=== PATIENT | female | born 1970 | race African-American/Black ===

== ENCOUNTER 2017-11-16 13:52 | Emergency (ER) | payer MEDICARE, MEDICAID ==
[~2017-11-16 13:52] MED LIST: Dextrose 50% Abboject 50 ML SYRINGE ONE; Sodium Chloride 0.9% 1,000 ML BAG ONE
[2017-11-16] MEDS ORDERED: Ondansetron ODT 4 MG TAB ONE (15:42)
[2017-11-16] MEDS ORDERED: Ketorolac Tromethamine 30 MG/ML VIAL ONE (15:42)
[2017-11-16 16:05] LABS: #Lymphocytes 0.6 thou/uL (1.20-3.40); #Monocytes 0.6 thou/uL (0.11-0.59); #Neutrophils 5.6 thou/uL (1.40-6.50); %Basophils 0.5 % (0.0-1.0); %Eosinophils 0.2 % (0.0-10.0); %Lymphocytes 9.1 % (21.0-51.0); %Monocytes 8.5 % (0.0-10.0); %Neutrophils 81.7 % (42.0-75.0); Hemoglobin 11.7 g/dL (12.0-16.0); Mean Corpuscular HGB CONC 31.9 g/dL (32.0-36.0); Mean Corpuscular Hemoglobin 32.3 pg (27.0-31.0); Mean Corpuscular Volume 101.1 fL (78.0-98.0); Mean Platelet Volume 7.6 fL (7.4-10.4); Platelet Count 190 thou/uL (130-400); RBC Distribution Width 12.3 % (11.5-14.5); Red Blood Cell (RBC) Count 3.64 mill/uL (4.20-5.40); White Blood Cell (WBC) Count 6.9 thou/uL (4.8-10.8)
[2017-11-16 16:09] LABS: Bilirubin Negative (Negative); Blood, Urine Trace (Negative); Clarity Clear (Clear); Glucose, Urine (Dipstick) 250 mg/dL (Negative); Leukocyte Negative (Negative); Nitrite Negative (Negative); Protein, Urine (Dipstick) 30 mg/dL (Neg-Trace); Urobilinogen 0.2 mg/dL (0.2-1.0); pH, Urine 5.5 (5.0-9.0)
[2017-11-16 16:11] LABS: Bacteria/HPF Rare-Few HPF (None Seen); RBC/HPF 0-3 HPF (0-3); WBC/HPF None Seen HPF (0-3)
[2017-11-16 16:24] LABS: ALT (SGPT) 69 U/L (8-55); AST (SGOT) 59 U/L (5-34); Albumin 3.8 g/dL (3.5-5.0); Alkaline Phosphatase 105 U/L (40-150); Anion Gap 17 mmol/L (10-20); BUN (Urea Nitrogen) 8 mg/dL (7.0-18.7); Bilirubin, Total 0.3 mg/dL (0.2-1.2); Calc. Creatinine Clearance 0 mL/min (70-130); Calcium 8.8 mg/dL (7.8-10.44); Carbon Dioxide 23 mmol/L (22-29); Chloride 106 mmol/L (98-107); Estimated GFR-MDRD 76; Globulin 2.9 g/dL (2.4-3.5); Glucose 218 mg/dL (70-105); Potassium 3.5 mmol/L (3.5-5.1); Protein, Total 6.7 g/dL (6.0-8.3); Sodium 142 mmol/L (136-145)
[2017-11-16 16:31] LABS: Lipase Less than 4 U/L (8-78)
[2017-11-16] MEDS ORDERED: Labetalol HCl 100 MG/20 ML VIAL ONE (17:25)
[2017-11-16 17:37] LABS: Pregnancy Test - Urine (BHCG) Negative (Negative); Pregu Control Background? CLEAR/WHITE (CLR/WHITE); Pregu Control Bar Appear? YES (CONTROL BAR); Specific Gravity 1.007 (1.002-1.036)
== END 2017-11-16 22:00 | disposition home or self-care (01) ==
LOC: MADERS 13:52
DX: E10.649 Type 1 diabetes mellitus with hypoglycemia without coma (principal); I10 Essential (primary) hypertension; Z79.82 Long term (current) use of aspirin; Z79.899 Other long term (current) drug therapy; Z79.4 Long term (current) use of insulin
CPT/HCPCS: 80053; 81001; 81025; 82150; 82962; 83690; 85025; 87086; 96374; 96375; 99284; J1610; 36415; 36416; J1885; J7050; Q0162

== ENCOUNTER 2018-05-24 17:19 | Emergency (ER) | payer MEDICARE, MEDICAID ==
[~2018-05-24 17:19] MED LIST changes: -Dextrose 50% Abboject 50 ML SYRINGE ONE; +Iopamidol 370 76% 100 ML VIAL ONE; -Sodium Chloride 0.9% 1,000 ML BAG ONE
[2018-05-24 18:02] LABS: #Lymphocytes 0.4 thou/uL (1.20-3.40); #Monocytes 0.3 thou/uL (0.11-0.59); #Neutrophils 11.2 thou/uL (1.40-6.50); %Basophils 0.3 % (0.0-1.0); %Lymphocytes 3.3 % (21.0-51.0); %Monocytes 2.1 % (0.0-10.0); %Neutrophils 94.2 % (42.0-75.0); Hemoglobin 12.1 g/dL (12.0-16.0); Mean Corpuscular Hemoglobin 32.5 pg (27.0-31.0); Mean Corpuscular Volume 101.5 fL (78.0-98.0); Mean Platelet Volume 9.6 fL (7.4-10.4); Platelet Count 200 thou/uL (130-400); RBC Distribution Width 13.3 % (11.5-14.5); Red Blood Cell (RBC) Count 3.73 mill/uL (4.20-5.40); White Blood Cell (WBC) Count 11.9 thou/uL (4.8-10.8)
[2018-05-24 18:03] LABS: ALT (SGPT) 24 U/L (8-55); AST (SGOT) 32 U/L (5-34); Albumin 4.3 g/dL (3.5-5.0); Alkaline Phosphatase 91 U/L (40-150); Anion Gap 22 mmol/L (10-20); BUN (Urea Nitrogen) 12 mg/dL (7.0-18.7); Calc. Creatinine Clearance 0 mL/min (70-130); Calcium 9.3 mg/dL (7.8-10.44); Carbon Dioxide 19 mmol/L (22-29); Chloride 102 mmol/L (98-107); Estimated GFR-MDRD 64; Globulin 3.3 g/dL (2.4-3.5); Glucose 313 mg/dL (70-105); Lipase 20 U/L (8-78); Protein, Total 7.6 g/dL (6.0-8.3); Sodium 139 mmol/L (136-145)
[2018-05-24 18:17] LABS: Bilirubin Negative (Negative); Blood, Urine Small (Negative); Glucose, Urine (Dipstick) >=1000 mg/dL (Negative); Leukocyte Negative (Negative); Nitrite Negative (Negative); Protein, Urine (Dipstick) > or equal to 300 mg/dL (Neg-Trace); Urobilinogen 0.2 mg/dL (0.2-1.0); pH, Urine 6.5 (5.0-9.0)
[2018-05-24 18:21] LABS: Bacteria/HPF Rare-Few HPF (None Seen); Clarity Hazy (Clear); Squamous Epithelial 0-3 HPF (0-3); WBC/HPF 0-3 HPF (0-3)
[2018-05-24] MEDS ORDERED: Insulin Regular 300 UNITS/3 ML VIAL ONE (18:50)
[2018-05-24] MEDS ORDERED: Sodium Chloride 0.9% 1,000 ML ONE ×2 (18:50→20:20)
[2018-05-24] MEDS ORDERED: diphenhydrAMINE 50 MG/ML VIAL ONE (19:05)
[2018-05-24] MEDS ORDERED: Fentanyl 100 MCG/2 ML VIAL ONE ×2 (19:05→20:48)
--- NOTE | 2018-05-24 20:15 | CT ---
ABDOMEN AND PELVIS CT SCAN WITH IV CONTRAST: HISTORY: A 47-year-old female with a history of hypertension, prior pancreatitis, and diabetes. Prior Whipple procedure, as well as numerous other procedures. FINDINGS: The lung bases are clear. The liver is unremarkable. No significant ductal dilatation. There is so me edematous changes around the tail of the pancreas, worrisome for acute pancreatitis. Correlate wi th pancreatic enzymes. The spleen and adrenal glands are unremarkable. Small, stable left renal hyp odensities, evidence for small cysts. Electrode device overlies the left anterolateral subcutaneous tissue. Normal appearing appendix. No renal calculi or acute obstruction. IMPRESSION: 1. Edematous changes around the tail of the pancreas, evidence for acute pancreatitis. 2. Postoperative changes in the upper abdomen. Status post cholecystectomy. 3. Renal hypodensities, stable. 4. No evidence for other significant acute process. POS: JASMEET
[2018-05-24] MEDS ORDERED: Sodium Chloride 0.9% 100 ML ONE (20:48)
== END 2018-05-24 22:42 | disposition short-term general hospital (02) ==
LOC: MADERS 17:19
DX: E10.10 Type 1 diabetes mellitus with ketoacidosis without coma (principal); I10 Essential (primary) hypertension; Z79.899 Other long term (current) drug therapy; Z79.82 Long term (current) use of aspirin
CPT/HCPCS: 36416; 74177; 80053; 81003; 81015; 83690; 84484; 85025; 93005; 94760; 96361; 96365; 96366; 96375; 96376; J1200; J1815; J3010; J7050

== ENCOUNTER 2018-08-18 22:35 | Emergency (ER) | payer MEDICARE, MEDICAID ==
[~2018-08-18 22:35] MED LIST changes: -Iopamidol 370 76% 100 ML VIAL ONE; +Sodium Chloride 0.9% 1,000 ML BAG ONE
[2018-08-19 00:09] LABS: #Basophils 0.1 thou/uL (0.0-0.2); #Eosinphils 0.1 thou/uL (0.0-0.7); #Lymphocytes 0.6 thou/uL (1.20-3.40); #Monocytes 0.7 thou/uL (0.11-0.59); #Neutrophils 4.7 thou/uL (1.40-6.50); %Basophils 1.1 % (0.0-1.0); %Eosinophils 0.8 % (0.0-10.0); %Lymphocytes 10.4 % (21.0-51.0); %Monocytes 10.9 % (0.0-10.0); %Neutrophils 76.7 % (42.0-75.0); Hemoglobin 10.5 g/dL (12.0-16.0); Mean Corpuscular HGB CONC 32.1 g/dL (32.0-36.0); Mean Corpuscular Hemoglobin 30.8 pg (27.0-31.0); Mean Corpuscular Volume 95.8 fL (78.0-98.0); Mean Platelet Volume 8.2 fL (7.4-10.4); Platelet Count 187 thou/uL (130-400); RBC Distribution Width 13.3 % (11.5-14.5); White Blood Cell (WBC) Count 6.1 thou/uL (4.8-10.8)
[2018-08-19 00:23] LABS: ALT (SGPT) 70 U/L (8-55); AST (SGOT) 72 U/L (5-34); Albumin 2.9 g/dL (3.5-5.0); Alkaline Phosphatase 100 U/L (40-150); Anion Gap 11 mmol/L (10-20); BUN (Urea Nitrogen) 11 mg/dL (7.0-18.7); Bilirubin, Total 0.3 mg/dL (0.2-1.2); CK (CPK) 44 U/L (29-168); Calc. Creatinine Clearance 0 mL/min (70-130); Carbon Dioxide 29 mmol/L (22-29); Chloride 106 mmol/L (98-107); Estimated GFR-MDRD 57; Globulin 2.3 g/dL (2.4-3.5); Glucose 152 mg/dL (70-105); Potassium 3.4 mmol/L (3.5-5.1); Protein, Total 5.2 g/dL (6.0-8.3); Sodium 143 mmol/L (136-145)
== END 2018-08-19 01:00 | disposition home or self-care (01) ==
LOC: MADERS 22:35
DX: I95.9 Hypotension, unspecified (principal); E86.0 Dehydration; R42 Dizziness and giddiness; T50.905A Adverse effect of unspecified drugs, medicaments and biological substances, initial encounter; E10.9 Type 1 diabetes mellitus without complications; I10 Essential (primary) hypertension; Z79.4 Long term (current) use of insulin; Z79.82 Long term (current) use of aspirin; Z79.899 Other long term (current) drug therapy
CPT/HCPCS: 36415; 80053; 82550; 85025; 96360; J7050

== ENCOUNTER 2018-11-06 22:42 | Emergency (ER) | payer MEDICARE, MEDICAID ==
[2018-11-06] MEDS ORDERED: Ondansetron PF 4 MG/2 ML Vial ONE (23:22)
[2018-11-07 00:40] LABS: #Lymphocytes 0.4 thou/uL (1.20-3.40); #Monocytes 0.3 thou/uL (0.11-0.59); #Neutrophils 10.5 thou/uL (1.40-6.50); %Basophils 0.3 % (0.0-1.0); %Eosinophils 0.1 % (0.0-10.0); %Lymphocytes 3.9 % (21.0-51.0); %Monocytes 2.8 % (0.0-10.0); %Neutrophils 92.9 % (42.0-75.0); Mean Corpuscular HGB CONC 31.4 g/dL (32.0-36.0); Mean Corpuscular Hemoglobin 31.6 pg (27.0-31.0); Mean Corpuscular Volume 100.7 fL (78.0-98.0); Mean Platelet Volume 6.9 fL (7.4-10.4); Platelet Count 257 thou/uL (130-400); RBC Distribution Width 14.7 % (11.5-14.5); Red Blood Cell (RBC) Count 3.47 mill/uL (4.20-5.40); White Blood Cell (WBC) Count 11.3 thou/uL (4.8-10.8)
[2018-11-07 00:55] LABS: BHCG - Serum Negative (NEGATIVE); Pregs Control Background? CLEAR/WHITE (CLR/WHITE); Pregs Control Bar Appear? YES (CONTROL BAR)
[2018-11-07 01:49] LABS: ALT (SGPT) 44 U/L (8-55); AST (SGOT) 43 U/L (5-34); Albumin 3.5 g/dL (3.5-5.0); Alkaline Phosphatase 103 U/L (40-150); Anion Gap 12 mmol/L (10-20); BUN (Urea Nitrogen) 12 mg/dL (7.0-18.7); Bilirubin, Total 0.6 mg/dL (0.2-1.2); Calc. Creatinine Clearance 0 mL/min (70-130); Calcium 8.4 mg/dL (7.8-10.44); Carbon Dioxide 27 mmol/L (22-29); Chloride 106 mmol/L (98-107); Estimated GFR-MDRD 50; Glucose 239 mg/dL (70-105); Magnesium 2.1 mg/dL (1.6-2.6); Potassium 3.9 mmol/L (3.5-5.1); Protein, Total 6.5 g/dL (6.0-8.3); Sodium 141 mmol/L (136-145)
== END 2018-11-07 02:55 | disposition home or self-care (01) ==
LOC: MADERS 22:42
DX: E10.649 Type 1 diabetes mellitus with hypoglycemia without coma (principal); D64.9 Anemia, unspecified; I10 Essential (primary) hypertension; Z79.82 Long term (current) use of aspirin; Z79.4 Long term (current) use of insulin; Z79.899 Other long term (current) drug therapy
CPT/HCPCS: 36416; 80053; 83735; 84703; 85025; 96374; J2405

== ENCOUNTER 2019-06-19 19:23 | Emergency (ER) | payer MEDICARE, MEDICAID ==
[~2019-06-19 19:23] MED LIST changes: +Aspirin Chewable 81 MG TAB ONE; +Iopamidol 370 76% 100 ML VIAL ONE; -Sodium Chloride 0.9% 1,000 ML BAG ONE
[2019-06-19] MEDS ORDERED: Sodium Chloride 0.9% 1,000 ML ONE ×2 (20:17→21:43)
[2019-06-19] MEDS ORDERED: Promethazine HCl 25 MG/ML VIAL ONE (20:50)
[2019-06-19 20:51] LABS: Bilirubin Negative (Negative); Blood, Urine Trace (Negative); Clarity Clear (Clear); Glucose, Urine (Dipstick) 500 mg/dL (Negative); Leukocyte Negative (Negative); Nitrite Negative (Negative); Protein, Urine (Dipstick) 30 mg/dL (Neg-Trace); Urobilinogen 0.2 mg/dL (Less than 2)
[2019-06-19 21:02] LABS: Bacteria/HPF Rare-Few HPF (None Seen); RBC/HPF 0-3 HPF (0-3); Squamous Epithelial 0-3 HPF (0-3); WBC/HPF 0-3 HPF (0-3)
[2019-06-19 21:33] LABS: ALT (SGPT) 20 U/L (8-55); AST (SGOT) 32 U/L (5-34); Alkaline Phosphatase 74 U/L (40-110); Anion Gap 20 mmol/L (10-20); BUN (Urea Nitrogen) 11 mg/dL (7.0-18.7); Bilirubin, Total 0.5 mg/dL (0.2-1.2); CRP (Inflammatory) Less than 0.50 mg/dL (= or < 0.5); Calc. Creatinine Clearance 0 mL/min (70-130); Calcium 8.6 mg/dL (7.8-10.44); Carbon Dioxide 16 mmol/L (22-29); Chloride 106 mmol/L (98-107); Estimated GFR-MDRD 58; Globulin 2.7 g/dL (2.4-3.5); Glucose 302 mg/dL (70-105); Potassium 3.4 mmol/L (3.5-5.1); Protein, Total 6.7 g/dL (6.0-8.3); Sodium 139 mmol/L (136-145)
[2019-06-19 21:36] LABS: #Basophils 0.1 thou/uL (0.0-0.2); #Lymphocytes 0.8 thou/uL (1.20-3.40); #Monocytes 0.3 thou/uL (0.11-0.59); #Neutrophils 6.1 thou/uL (1.40-6.50); %Basophils 1.1 % (0.0-1.0); %Eosinophils 0.2 % (0.0-10.0); %Lymphocytes 11.2 % (21.0-51.0); %Monocytes 4.4 % (0.0-10.0); Critical Call w/ Read Back NO; Hemoglobin 12.6 g/dL (12.0-16.0); Mean Corpuscular HGB CONC 29.9 g/dL (32.0-36.0); Mean Corpuscular Hemoglobin 30.5 pg (27.0-31.0); Mean Corpuscular Volume 102.1 fL (78.0-98.0); Mean Platelet Volume 11.3 fL (7.4-10.4); Platelet Count 157 thou/uL (130-400); RBC Distribution Width 14.7 % (11.5-14.5); Red Blood Cell (RBC) Count 4.14 mill/uL (4.20-5.40); White Blood Cell (WBC) Count 7.4 thou/uL (4.8-10.8)
[2019-06-19] MEDS ORDERED: Pantoprazole 40 MG VIAL ONE (22:39)
[2019-06-19] MEDS ORDERED: Fentanyl 100 MCG/2 ML VIAL ONE ×2 (22:39→23:39)
--- NOTE | 2019-06-19 23:05 | CT ---
CT ABDOMEN AND PELVIS WITH IV CONTRAST: History: Nausea, vomiting, abdominal pain. Comparison: 06-14-2019 FINDINGS: Lung bases are clear. Gallbladder is not visualized, presumably absent. There is minimal pneumobilia present. Liver has a n ormal Ct appearance. The pancreas is not well assessed due to adjacent loops of bowel. The spleen and bilateral adrenal gl ands have a normal CT appearance. Subcentimeter, too small to characterize, hypodense lesions are aga in seen in each kidney. Post-surgical changes, loops of bowel in the upper abdomen are noted which involve the stomach and lo ops of small bowel. Paez of the urinary bladder do appear mildly thickened, this is a stable finding compared to the radha or exam. Questionable minimal adjacent perivesical inflammatory changes. Cystitis in the correct clin ical scenario is a possibility. The enlarged portion of the colon is predominately fluid filled extending to the rectum. There is sug gestion of mucosal thickening involving the paez of the proximal rectum. This was not appreciated on the prior examination, but there was evidence of thickening involving the ascending colon near the l evel of the hepatic flexure which is not appreciated on the current study. Abdominal aorta is normal in caliber. Portal vein appear patent on this exam. No free fluid, fluid collection, or lymphadenopathy is seen in the abdomen or pelvis. Uterus is visualized and has a normal appearance. There is a catheter within the central canal of the spine which extends to the T9-10 level. This was also present on prior exam. Post-surgical changes related to scarring in the left lower quadrant of the abdomen are present. IMPRESSION: 1. Large portion of the colon is fluid filled but greater in the region of the descending colon exten ding to the rectum with suggestion of mucosal thickening involving a portion of the proximal rectum/d istal descending colon. Findings could be relate colitis in the correct clinical scenario. 2. Mild thickening involving the urinary bladder with minimal adjacent inflammatory changes, especial ly anterior. Cystitis in the correct clinical scenario is a possibility. 3. Additional findings as described above, overall unchanged from prior study. POS: JASMEET
[2019-06-19] MEDS ORDERED: Aspirin Chewable 81 MG TAB ONE (23:26)
[2019-06-19] MEDS ORDERED: Nitroglycerin 2% Ointment 1 INCH/1 GM Packet ONE (23:26)
[2019-06-19 23:35] LABS: CKMB 1.2 ng/mL (0-6.6)
[2019-06-19] MEDS ORDERED: Metoprolol Tartrate 50 MG TAB ONE (23:41)
== END 2019-06-19 23:55 | disposition short-term general hospital (02) ==
LOC: MADERS 19:23
DX: K85.90 Acute pancreatitis without necrosis or infection, unspecified (principal); K52.9 Noninfective gastroenteritis and colitis, unspecified; E10.65 Type 1 diabetes mellitus with hyperglycemia; R11.2 Nausea with vomiting, unspecified; I10 Essential (primary) hypertension; Z79.899 Other long term (current) drug therapy
CPT/HCPCS: 74177; 80053; 81003; 81015; 82150; 82553; 83605; 83690; 84484; 85025; 86140; 87086; 96361; 96365; 96375; 96376; C9113; J2550; J3010; J7050; Q9967

== ENCOUNTER 2019-11-20 23:56 | Emergency (ER) | payer MEDICARE, MEDICAID ==
[2019-11-21] MEDS ORDERED: Pantoprazole 40 MG VIAL ONE (00:23)
[2019-11-21] MEDS ORDERED: Promethazine HCl 25 MG/ML VIAL ONE ×2 (00:23→03:01)
[2019-11-21] MEDS ORDERED: Metoclopramide HCl 10 MG/2 ML VIAL ONE (00:23)
[2019-11-21] MEDS ORDERED: Metoprolol Tartrate 50 MG TAB ONE (00:48)
[2019-11-21] MEDS ORDERED: Amlodipine 5 MG TAB ONE ×2 (00:48→00:55)
[2019-11-21 01:11] LABS: Hemoglobin 12.6 g/dL (12.0-16.0); Mean Corpuscular HGB CONC 30.3 g/dL (32.0-36.0); Mean Corpuscular Hemoglobin 32.1 pg (27.0-31.0); Mean Platelet Volume 9.8 fL (7.4-10.4); Platelet Count 206 thou/uL (130-400); RBC Distribution Width 13.2 % (11.5-14.5); Red Blood Cell (RBC) Count 3.92 mill/uL (4.20-5.40); White Blood Cell (WBC) Count 9.5 thou/uL (4.8-10.8)
[2019-11-21 01:28] LABS: #Basophils 0.1 thou/uL (0.0-0.2); #Lymphocytes 0.7 thou/uL (1.20-3.40); #Monocytes 0.6 thou/uL (0.11-0.59); #Neutrophils 8.1 thou/uL (1.40-6.50); %Basophils 0.6 % (0.0-1.0); %Eosinophils 0.2 % (0.0-10.0); %Lymphocytes 7.5 % (21.0-51.0); %Monocytes 6.5 % (0.0-10.0); %Neutrophils 85.2 % (42.0-75.0); MDiff Complete? YES; Macrocytosis SLIGHT = 6-15 cells (100X) (0-5/hpf); Platelet Morphology Comment Appears Adequate; Stomatocytes SLIGHT = 2-5 cells (100X) (0-1/hpf)
[2019-11-21 01:41] LABS: Bilirubin Small (Negative); Blood, Urine Small (Negative); Clarity Clear (Clear); Glucose, Urine (Dipstick) Negative (Negative); Ketone, Urine 15 mg/dL (Negative); Leukocyte Negative (Negative); Nitrite Negative (Negative); Protein, Urine (Dipstick) > or equal to 300 mg/dL (Neg-Trace); Specific Gravity, Urine 1.028 (1.002-1.036); Urobilinogen 0.2 mg/dL (Less than 2); pH, Urine 5.5 (5.0-9.0)
[2019-11-21 01:51] LABS: ALT (SGPT) 17 U/L (8-55); AST (SGOT) 35 U/L (5-34); Albumin 4.3 g/dL (3.5-5.0); Alkaline Phosphatase 64 U/L (40-110); Anion Gap 19 mmol/L (10-20); BUN (Urea Nitrogen) 15 mg/dL (7.0-18.7); Bilirubin, Total 0.4 mg/dL (0.2-1.2); CK (CPK) 38 U/L (29-168); CRP (Inflammatory) Less than 0.50 mg/dL (= or < 0.5); Calc. Creatinine Clearance 0 mL/min (70-130); Carbon Dioxide 17 mmol/L (22-29); Chloride 104 mmol/L (98-107); Estimated GFR-MDRD 40; Globulin 3.8 g/dL (2.4-3.5); Glucose 130 mg/dL (70-105); Lipase Less than 4 U/L (8-78); Potassium 5.8 mmol/L (3.5-5.1); Protein, Total 8.1 g/dL (6.0-8.3); Sodium 134 mmol/L (136-145)
[2019-11-21 01:56] LABS: Bacteria/HPF Rare-Few HPF (None Seen); Mucous/LPF Rare LPF (<2+); RBC/HPF 0-3 HPF (0-3); Squamous Epithelial 0-3 HPF (0-3); WBC/HPF None Seen HPF (0-3)
[2019-11-21] MEDS ORDERED: Sodium Chloride 0.9% 1,000 ML ONE (02:21)
--- NOTE | 2019-11-21 07:51 | RAD ---
EXAM: CHEST ONE VIEW HISTORY: Nausea and vomiting. COMPARISON: 01/09/2019 FINDINGS: The cardiac silhouette and pulmonary vasculature is within normal limits. The lungs are clear. The os seous structures are intact. There has been no interval change from prior study. IMPRESSION: No acute cardiopulmonary process.
--- NOTE | 2019-11-21 07:54 | RAD ---
EXAM: XR Abdomen 1 View/KUB PROVIDED CLINICAL HISTORY: Abdominal pain. COMPARISON: 08/08/2016 FINDINGS: Previously noted pain pump overlying left lower quadrant is no longer seen. Radiopaque tubing from a pain pump device remains unchanged in position. Bowel gas pattern is nonspecific. Small amount retained fecal material seen throughout the colon. Phleboliths are again seen overlying the left noelle pelvis. No additional suspicious calcifications are seen. Radiopaque suture material and surgical clips overlie the left upper quadrant. Punctate metallic density overlies the right sacral ala which may represent overlying artifact. No other interval change. IMPRESSION: Postoperative changes of the abdomen. Bowel gas pattern is nonspecific.
== END 2019-11-21 05:00 | disposition home or self-care (01) ==
LOC: MADERS 23:56
DX: E86.0 Dehydration (principal); L02.415 Cutaneous abscess of right lower limb; R11.2 Nausea with vomiting, unspecified; I10 Essential (primary) hypertension; E10.9 Type 1 diabetes mellitus without complications; Z79.899 Other long term (current) drug therapy
CPT/HCPCS: 71045; 74018; 80053; 81003; 81015; 82150; 82550; 83690; 84484; 85025; 86140; 93005; C9113; J2550; J2765; J7050

== ENCOUNTER → 2019-12-23 | Emergency (ER) | payer MEDICARE, MEDICAID ==
[~2019-12-23] MED LIST changes: +Albuterol Sulfate 2.5 mg/3 ml Neb ONE; -Aspirin Chewable 81 MG TAB ONE; +Azithromycin 500 MG VIAL ONE; +Insulin Regular 300 UNITS/3 ML VIAL ONE; -Iopamidol 370 76% 100 ML VIAL ONE; +Ketorolac Tromethamine 30 MG/ML VIAL ONE; +Ondansetron PF 4 MG/2 ML Vial ONE; +Sodium Bicarb 5 MEQ/10 ML Abboject 4.2% SYRINGE ONE; +Sodium Chloride 0.9% 1,000 ML BAG ONE; +Sodium Chloride 0.9% 100 ML BAG ONE; +cefTRIAXone\\ROCEPHIN 2 GM VIAL ONE
[2019-12-23 09:35] LABS: BHCG - Serum Negative (NEGATIVE); Pregs Control Background? CLEAR/WHITE (CLR/WHITE); Pregs Control Bar Appear? YES (CONTROL BAR)
--- NOTE | 2019-12-23 09:35 | RAD ---
Chest one view HISTORY: Cough. COMPARISON: 11/21/2019. FINDINGS: Cardiac silhouette is magnified by projection. Pulmonary lobe. Mediastinum is midline. Calcified granulomata are consistent with healed disease. Very subtle ill-defined parenchymal opacity projects over the right lung base on today's exam. No lobar consolidation or evidence of pneumothorax. IMPRESSION : There is subtle right basilar parenchymal infiltrate. Clinical correlation regarding other signs and symptoms of right basilar pneumonitis is required. Please consider eventually follow-up with upright PA and lateral views of the chest in full inspirati on to evaluate for clearing.
[2019-12-23 09:46] LABS: Acetaminophen Less than 6.0 mcg/mL (10.0-30.0); Alcohol Less than 10 mg/dL (Less than 10); Magnesium 3.2 mg/dL (1.6-2.6); Salicylate Less than 8.0 mg/dL (15.0-30.0)
[2019-12-23 09:51] LABS: #Basophils 0.2 thou/uL (0.0-0.2); #Lymphocytes 1.2 thou/uL (1.20-3.40); #Monocytes 1.4 thou/uL (0.11-0.59); #Neutrophils 11.1 thou/uL (1.40-6.50); %Basophils 1.2 % (0.0-1.0); %Eosinophils 0.1 % (0.0-10.0); %Lymphocytes 8.8 % (21.0-51.0); %Monocytes 9.7 % (0.0-10.0); %Neutrophils 80.2 % (42.0-75.0); Hemoglobin 8.9 g/dL (12.0-16.0); MDiff Complete? YES; Macrocytosis MODERATE=16-30 cells (100X) (0-5/hpf); Mean Corpuscular HGB CONC 27.4 g/dL (32.0-36.0); Mean Corpuscular Hemoglobin 33.7 pg (27.0-31.0); Mean Corpuscular Volume 123.3 fL (78.0-98.0); Mean Platelet Volume 8.4 fL (7.4-10.4); Platelet Count 172 thou/uL (130-400); RBC Distribution Width 14.3 % (11.5-14.5); Red Blood Cell (RBC) Count 2.65 mill/uL (4.20-5.40); White Blood Cell (WBC) Count 13.9 thou/uL (4.8-10.8)
[2019-12-23 09:54] LABS: ALT (SGPT) 49 U/L (8-55); AST (SGOT) 130 U/L (5-34); Alkaline Phosphatase 104 U/L (40-110); BUN (Urea Nitrogen) 42 mg/dL (7.0-18.7); Bilirubin, Total 0.5 mg/dL (0.2-1.2); Calc. Creatinine Clearance 0 mL/min (70-130); Calcium 7.7 mg/dL (7.8-10.44); Carbon Dioxide Less than 8 mmol/L (22-29); Chloride 88 mmol/L (98-107); Estimated GFR-MDRD 22; Globulin 2.5 g/dL (2.4-3.5); Glucose 952 mg/dL (70-105); Lipase 27 U/L (8-78); Potassium 7.6 mmol/L (3.5-5.1); Protein, Total 6.5 g/dL (6.0-8.3); Sodium 124 mmol/L (136-145)
[2019-12-23 10:38] LABS: Bicarbonate (HCO3v) 1.8 mmol/L (22.0-28.0); CO2 Tension (PvCO2) 14.1 mmHg (40.0-50.0); Chloride 98 mmol/L (98-107); Hemoglobin - Calc 11.6 g/dL (12.0-16.0); Potassium 8.1 mmol/L (3.5-5.1); Sodium 117 mmol/L (138-145); T. Carbon Dioxide Less than 5.0 mmol/L (22.0-28.0)
[2019-12-23 10:43] LABS: Base Excess-Venous Less than -30.0 mmol/L (-2.0 to 3.0)
== END ==
LOC: MADERS 08:41
DX: E10.10 Type 1 diabetes mellitus with ketoacidosis without coma (principal); E87.5 Hyperkalemia; J18.9 Pneumonia, unspecified organism; N28.9 Disorder of kidney and ureter, unspecified; I10 Essential (primary) hypertension; Z79.899 Other long term (current) drug therapy
CPT/HCPCS: 36416; 71045; 80053; 80307; 82010; 82330; 82803; 83605; 83690; 83735; 84484; 84703; 85025; 93005; 96361; 96365; 96368; 96375; 96376; J0456; J0696; J1815; J1885; J2405; J3490; J7050; J7611

== ENCOUNTER 2020-05-20 14:13 | Emergency (ER) | payer MEDICARE, MEDICAID ==
[~2020-05-20 14:13] MED LIST changes: -Albuterol Sulfate 2.5 mg/3 ml Neb ONE; -Azithromycin 500 MG VIAL ONE; -Insulin Regular 300 UNITS/3 ML VIAL ONE; -Ketorolac Tromethamine 30 MG/ML VIAL ONE; +Norepinephrine 4 MG/4 ML VIAL ONE; -Ondansetron PF 4 MG/2 ML Vial ONE; -Sodium Bicarb 5 MEQ/10 ML Abboject 4.2% SYRINGE ONE; -Sodium Chloride 0.9% 1,000 ML BAG ONE; -Sodium Chloride 0.9% 100 ML BAG ONE; -cefTRIAXone\\ROCEPHIN 2 GM VIAL ONE
[2020-05-20] MEDS ORDERED: Norepinephrine 4 MG/4 ML VIAL ONE (14:21)
[2020-05-20] MEDS ORDERED: Insulin Regular 300 UNITS/3 ML VIAL ONE (14:29)
[2020-05-20] MEDS ORDERED: Calcium Gluc 4.6 MEQ/10 ML (100 MG/ML) ONE (14:40)
--- NOTE | 2020-05-20 14:45 | RAD ---
Chest AP view INDICATION: CPR COMPARISON: April 29, 2020 FINDINGS: Lungs: There is new airspace opacity in the right upper lobe. Cardiac silhouette: The cardiomediastinal silhouette appears within normal limits. Pulmonary vasculature: Normal Pleural spaces: No pleural effusion or pneumothorax is demonstrated. Upper abdomen: No abnormality seen. Osseous structures: No acute osseous abnormality. Additional findings: Patient is not intubated with the ET tube tip seen in the level of the thoracic inlet. There is an IV cannula within the right neck soft tissues. There is a pacer pad overlying the right upper chest wall. IMPRESSION: New right upper lobe airspace opacity is nonspecific and may reflect pneumonia or edema. Intubation. No pneumothorax.
[2020-05-20 14:56] LABS: ALT (SGPT) 282 U/L (8-55); AST (SGOT) 1175 U/L (5-34); Albumin 2.9 g/dL (3.5-5.0); Alkaline Phosphatase 101 U/L (40-110); BUN (Urea Nitrogen) 53 mg/dL (7.0-18.7); Bilirubin, Total 1.6 mg/dL (0.2-1.2); Calc. Creatinine Clearance 0 mL/min (70-130); Calcium 7.8 mg/dL (7.8-10.44); Chloride 90 mmol/L (98-107); Globulin 2.1 g/dL (2.4-3.5); Sodium 132 mmol/L (136-145)
[2020-05-20 14:58] LABS: Anisocytosis SLIGHT = 6-15 cells (100X) (0-5/hpf); Band 6 % (5-11); Hemoglobin 9.3 g/dL (12.0-16.0); Hypochromia MODERATE=16-30 cells (100X) (0-5/hpf); Lymphocytes 33 % (21-51); MDiff Complete? YES; Macrocytosis SLIGHT = 6-15 cells (100X) (0-5/hpf); Mean Corpuscular HGB CONC 28.5 g/dL (32.0-36.0); Mean Corpuscular Hemoglobin 35.6 pg (27.0-31.0); Mean Corpuscular Volume 125.2 fL (78.0-98.0); Mean Platelet Volume 9.9 fL (7.4-10.4); Monocytes 3 % (0-10); Neutrophil 58 % (42-75); Platelet Count 92 thou/uL (130-400); Platelet Morphology Comment Appears Decreased; RBC Distribution Width 14.3 % (11.5-14.5); Red Blood Cell (RBC) Count 2.62 mill/uL (4.20-5.40); White Blood Cell (WBC) Count 15.9 thou/uL (4.8-10.8)
[2020-05-20 14:59] LABS: Carbon Dioxide Less than 8 mmol/L (22-29); Glucose 842 mg/dL (70-105); Potassium 7.9 mmol/L (3.5-5.1)
== END 2020-05-20 15:11 | disposition short-term general hospital (02) ==
LOC: MADERS 14:13
DX: I46.9 Cardiac arrest, cause unspecified (principal); E10.65 Type 1 diabetes mellitus with hyperglycemia; I10 Essential (primary) hypertension
CPT/HCPCS: 36415; 51702; 71045; 80053; 82553; 83605; 83880; 84484; 85025; 93005; 94760; 96365; 96375; J1815; J2001; J7070

== ENCOUNTER 2020-11-23 12:02 | Outpatient (CLI) | payer MEDICARE, MEDICAID ==
[2020-11-23 16:44] LABS: Bilirubin Negative (Negative); Blood, Urine Trace (Negative); Clarity Clear (Clear); Glucose, Urine (Dipstick) 250 mg/dL (Negative); Ketone, Urine Negative (Negative); Leukocyte Negative (Negative); Nitrite Negative (Negative); Protein, Urine (Dipstick) 100 mg/dL (Neg-Trace); Urobilinogen 0.2 mg/dL (Less than 2); pH, Urine 5.5 (5.0-9.0)
[2020-11-23 16:55] LABS: Bacteria/HPF Rare-Few HPF (None Seen); RBC/HPF 0-3 HPF (0-3); Squamous Epithelial 0-3 HPF (0-3); WBC/HPF None Seen HPF (0-3)
== END 2020-11-23 12:03 | disposition home or self-care (01) ==
LOC: MADLAB 12:02
PROVIDERS: ATTEND Family Medicine
DX: I12.9 Hypertensive chronic kidney disease with stage 1 through stage 4 chronic kidney disease, or unspecified chronic kidney disease (principal); E11.22 Type 2 diabetes mellitus with diabetic chronic kidney disease; N18.9 Chronic kidney disease, unspecified
CPT/HCPCS: 81001; 87086

== ENCOUNTER 2022-06-26 03:14 | Emergency (ER) | payer MEDICARE, MEDICAID ==
[2022-06-26] MEDS ORDERED: Insulin Regular 300 UNITS/3 ML VIAL ONE (03:46)
[2022-06-26] MEDS ORDERED: INSULIN REGULAR IN 0.9 % NACL 100 UNIT/100 ML BAG ONE (03:48)
[2022-06-26] MEDS ORDERED: Sodium Chloride 0.9% 1,000 ML ONE (04:06)
[2022-06-26 04:11] LABS: #Lymphocytes 0.5 thou/uL (1.20-3.40); #Monocytes 0.2 thou/uL (0.11-0.59); #Neutrophils 1.3 thou/uL (1.40-6.50); %Basophils 1.8 % (0.0-1.0); %Eosinophils 0.1 % (0.0-10.0); %Lymphocytes 24.2 % (21.0-51.0); %Monocytes 7.6 % (0.0-10.0); %Neutrophils 66.4 % (42.0-75.0); Anisocytosis SLIGHT = 6-15 cells (100X) (0-5/hpf); Hemoglobin 7.1 g/dL (12.0-16.0); Hypochromia SLIGHT = 6-15 cells (100X) (0-5/hpf); MDiff Complete? YES; Macrocytosis MODERATE=16-30 cells (100X) (0-5/hpf); Mean Corpuscular HGB CONC 28.9 g/dL (32.0-36.0); Mean Corpuscular Hemoglobin 35.8 pg (27.0-31.0); Mean Corpuscular Volume 123.8 fl (78.0-98.0); Platelet Count 106 10x3/uL (130-400); Platelet Morphology Comment Appears Decreased; RBC Distribution Width 16.1 % (11.5-14.5); Red Blood Cell (RBC) Count 1.99 mill/uL (4.20-5.40); Tear Drops SLIGHT = 2-5 cells (100X) (0-1/hpf)
[2022-06-26 04:13] LABS: ALT (SGPT) 126 U/L (8-55); AST (SGOT) 120 U/L (5-34); Albumin 1.6 g/dL (3.5-5.0); Alkaline Phosphatase 161 U/L (40-110); BUN (Urea Nitrogen) 24 mg/dL (9.8-20.1); Bilirubin, Total 0.4 mg/dL (0.2-1.2); CK (CPK) 1020 U/L (29-168); Calc. Creatinine Clearance 0 mL/min (70-130); Calcium 7.5 mg/dL (7.8-10.44); Chloride 113 mmol/L (98-107); Estimated GFR 21; Globulin 2.1 g/dL (2.4-3.5); Magnesium 2.4 mg/dL (1.6-2.6); Potassium 4.7 mmol/L (3.5-5.1); Protein, Total 3.7 g/dL (6.0-8.3); Sodium 143 mmol/L (136-145)
[2022-06-26 04:16] LABS: Bilirubin Negative (Negative); Blood, Urine Small (Negative); Glucose, Urine (Dipstick) >=1000 mg/dL (Negative); Ketone, Urine 40 mg/dL (Negative); Leukocyte Negative (Negative); Nitrite Negative (Negative); Protein, Urine (Dipstick) Negative (Neg-Trace); Urobilinogen 0.2 mg/dL (Less than 2)
[2022-06-26 04:16] LABS: Carbon Dioxide Less than 8 mmol/L (22-29); Glucose 773 mg/dL (70-105)
[2022-06-26 04:21] LABS: Clarity Hazy (Clear)
[2022-06-26 04:22] LABS: Bacteria/HPF 3+ HPF (None Seen); RBC/HPF 0-3 HPF (0-3); Squamous Epithelial 0-3 HPF (0-3); WBC/HPF 0-3 HPF (0-3)
[2022-06-26 04:29] LABS: CKMB 37.7 ng/mL (0-6.6)
[2022-06-26 04:36] LABS: Base Excess-Venous -21.7 mmol/L (-2.0 to 3.0); Bicarbonate (HCO3v) 5.6 mmol/L (22.0-28.0); Calcium, Ionized 0.94 mmol/L (1.15-1.33); Chloride 120 mmol/L (98-107); Hemoglobin - Calc 8.7 g/dL (12.0-16.0); Potassium 4.5 mmol/L (3.5-5.1); Sodium 143 mmol/L (138-145); T. Carbon Dioxide 6.1 mmol/L (22.0-28.0); vO2 Saturation-calc 99.6 % (60.0-85.0)
[2022-06-26] MEDS ORDERED: Lidocaine 2% 20 ml MDV ONE (04:46)
== END 2022-06-26 05:01 | disposition short-term general hospital (02) ==
LOC: MADERS 03:14
DX: E10.10 Type 1 diabetes mellitus with ketoacidosis without coma (principal); R77.8 Other specified abnormalities of plasma proteins; I10 Essential (primary) hypertension
CPT/HCPCS: 71045; 80053; 81003; 81015; 82010; 82330; 82550; 82553; 82803; 83605; 83690; 83735; 83880; 84484; 85025; 93005; 96361; 96374; J1815; J7050